=== PATIENT | female | born 2000 | race Caucasian/White ===

== ENCOUNTER 2021-10-27 01:30 | Emergency (ER) | payer OTHER ==
[~2021-10-27] VITALS: Ht 157.5 cm; Wt 48.1 kg
--- NOTE | 2021-10-27 01:59 | NUR ---
DR. ECHAVARRIA AT BEDSIDE, MSE IN PROGRESS.
--- NOTE | 2021-10-27 02:15 | NUR ---
Patient discharged to home in stable condition. Written and verbal after care instructions given. Patient verbalizes understanding of instructions. Stressed follow up or return to ER for worsening s/s. Steady gait, denies any n/v. Denies TREVIÑO/dizzyenss. Accompoaniued by parents.
[2021-10-27 04:49] VITALS: BP 112/62
== END 2021-10-27 02:20 | disposition home or self-care (01) ==
LOC: ER 01:44
DX: S09.90XA Unspecified injury of head, initial encounter (principal); W19.XXXA Unspecified fall, initial encounter; Y93.43 Activity, gymnastics; Y92.89 Other specified places as the place of occurrence of the external cause
CPT/HCPCS: A4663